=== PATIENT | female | born 1940 | race Caucasian/White ===

== ENCOUNTER 2016-08-23 21:18 | Emergency (ER) | payer MEDICARE, BC ==
[2016-08-23 22:06] LABS: #Basophils 0.1 thou/uL (0.0-0.2); #Eosinphils 0.3 thou/uL (0.0-0.7); #Lymphocytes 2.8 thou/uL (1.20-3.40); #Monocytes 0.7 thou/uL (0.11-0.59); #Neutrophils 5.6 thou/uL (1.40-6.50); %Basophils 1.2 % (0.0-1.0); %Eosinophils 3.2 % (0.0-10.0); %Monocytes 7.4 % (0.0-10.0); Hematocrit 42.1 % (36.0-47.0); Mean Platelet Volume 6.3 fL (7.4-10.4); Red Blood Cell (RBC) Count 4.54 mill/uL (4.20-5.40); White Blood Cell (WBC) Count 9.5 thou/uL (4.8-10.8)
[2016-08-23 22:31] LABS: Anion Gap 15 mmol/L (10-20); BUN (Urea Nitrogen) 25 mg/dL (9.8-20.1); Calc. Creatinine Clearance 0 mL/min (70-130); Calcium 9.5 mg/dL (7.8-10.44); Carbon Dioxide 18 mmol/L (23-31); Chloride 110 mmol/L (98-107); Estimated GFR-MDRD 43
--- NOTE | 2016-08-23 23:11 | ERRECORD ---
[facility] EMERGENCY RECORD ROS (21:56 MBRI) CONSTITUTIONAL: Negative constitutional review of systems, Historian denies chills, denies fever. EYES: Negative eye review of systems. ENT: Historian denies rhinorrhea, denies sore throat. CARDIOVASCULAR: Historian denies chest pain, denies dyspnea on exertion. RESPIRATORY: Historian denies cough, denies shortness of breath. GI: Negative gastrointestinal review of systems, Historian denies abdominal pain, denies diarrhea, denies nausea, denies vomiting. GENITOURINARY FEMALE: Negative genitourinary review of systems. MUSCULOSKELETAL: Historian denies injury, Denies any musculoskeletal pain. SKIN: Negative skin review of systems, Historian denies skin changes. NEUROLOGIC: Historian denies dizziness, denies focal weakness, denies headache, denies mental status changes, denies paresthesias, denies seizures, denies sensory changes, denies speech changes, denies tremors, denies vertigo, denies focal weakness, Historian denies sensory changes. PAST MEDICAL HISTORY (21:30 BMAD) MEDICAL HISTORY: Flu vaccine not up to date, Tetanus immunization up to date, Pneumococcal vaccine not up to date, Past medical history includes history of hypertension, which has been treated. FEMALE SURGICAL HISTORY: gangrenous ovarian cyst removed, Surgical history of hysterectomy. PSYCHIATRIC HISTORY: No previous psychiatric history. SOCIAL HISTORY: Patient denies alcohol use, Patient denies drug use, Patient has no smoking history. KNOWN ALLERGIES No Known Allergies CURRENT MEDICATIONS (21:31 BMAD) meTOPROLOL succinate: TABLET, EXTENDED RELEASE 24 HR : Strength - 50 mg : ORAL Patient Dose: 1 tab(s) Oral once a day. lisinopril-hydrochlorothiazide: TABLET : Strength - 20 mg-12.5 mg : ORAL Patient Dose: 1 tab(s) Oral once a day. VITAL SIGNS VITAL SIGNS: BP: 188/116, Pulse: 65, Resp: 18, Temp: 97.6 (Oral), Pain: 1, O2 sat: 98 on Room Air, Time: 08/23/2016 21:25. (21:25 BMAD) BP: 165/91, Time: 08/23/2016 21:36. (21:36 BMAD) Pulse: 62, Resp: 16, O2 sat: 97 on Room Air, Time: 08/23/2016 21:49. (21:49 BMAD) BP: 163/105, Time: 08/23/2016 21:50. (21:50 BMAD) &a-1R&a+25V*p+0X*q5477Y*c202B*c15G*c2P*p-0X&a-25V&a+1R Name: Jessica Peterson : 1940 F76 MedRec: [id number] AcctNum: [id number] Prepared: FriAug 23, 2016 22:50 by Interface Page 1 of 3 pMD [facility] EMERGENCY RECORD BP: 153/88, Pulse: 59, Resp: 18, Pain: 0, O2 sat: 97 on Room Air, Time: 08/23/2016 22:13. (22:13 BMAD) BP: 161/92, Pulse: 60, Resp: 14, O2 sat: 96 on Room Air, Time: 08/23/2016 22:23. (22:23 BMAD) PHYSICAL EXAM (21:56 MBRI) CONSTITUTIONAL: Vital Signs Reviewed, Nursing notes reviewed. HEAD: Head exam included findings of head atraumatic, normocephalic. EYES: Eye exam included findings of eyelids normal to inspection, Pupils equally round and reactive to light, Extraocular muscles intact. ENT: Ear exam normal, external ear normal, tympanic membranes normal, Pharynx exam normal. NECK: Neck exam normal, no cervical adenopathy, no tenderness. RESPIRATORY CHEST: Respiratory exam included findings of no respiratory distress, Breath sounds clear, No wheezing, No rales, No rhonchi. CARDIOVASCULAR: Cardiovascular exam included findings of heart rate regular rate and rhythm, Heart sounds normal, Carotids normal. ABDOMEN FEMALE: Abdominal exam included findings of abdomen nontender, Bowel sounds normal, no peritoneal signs, no rigidity, no guarding, no rebound. BACK: Back exam included findings of normal inspection, no tenderness. UPPER EXTREMITY: Upper extremity exam included findings of inspection normal, Radial pulse normal, no cyanosis, no clubbing, no edema. LOWER EXTREMITY: Lower extremity exam included findings of inspection normal, femoral pulses normal, no cyanosis, no clubbing, no edema, no tenderness noted. NEURO: Neuro exam findings include patient oriented to person, place and time, Speech normal, no focal motor deficits. SKIN: Skin exam included findings of skin warm, dry, and normal in color. EKG INTERPRETATION (21:47 MBRI) 12 LEAD EKG INTERPRETATION: 12 lead EKG interpreted by Emergency Department Physician at time of study, 12 lead EKG shows, sinus bradycardia, Rate (beats per minute): 51, with no ectopics, Conduction normal, ST segments normal, T waves normal, [place] normal. DOCTOR NOTES (22:37 MBRI) TEXT: PT has a hx of HTN and has been asymptomatic with the current pressure. No evidence at this time to suggest an associated cardiovascular or neurologic process requiring further intervention or evaluation during this encounter. The patient is on a medication regimen for this and it is recommended that they follow-up with their PMD to further assess their BP control. &a-1R&a+25V*p+0X*g9697A*c202B*c15G*c2P*p-0X&a-25V&a+1R Name: Jessica Peterson : 1940 F76 MedRec: [id number] AcctNum: [id number] Prepared: FriAug 23, 2016 22:50 by Interface Page 2 of 3 pMD [facility] EMERGENCY RECORD PROBLEM LIST No recorded problems DIAGNOSIS (22:37 MBRI) FINAL: PRIMARY: ESSENTIAL PRIMARY HYPERTENSION. PRESCRIPTION No recorded prescriptions DISPOSITION PATIENT: Disposition Type: Discharge, Disposition: *Discharge Home, Condition: Guarded. (22:37 MBRI) Condition: Good. (22:37 MBRI) Patient left the department. (22:46 BMAD) Stoner: BMAD=TULIO Crow, Brandon MBRI=DO Ordoñez Matthew &a-1R&a+25V*p+0X*c2498D*c202B*c15G*c2P*p-0X&a-25V&a+1R Name: KristenJessica : 1940 F76 MedRec: [id number] AcctNum: [id number] Prepared: FriAug 23, 2016 22:50 by Interface Page 3 of 3 pMD MTDD
--- NOTE | 2016-08-23 23:20 | PICIS ---
[facility] EMERGENCY RECORD TRIAGE (21:28 BMAD) TRIAGE NOTES: pt stating she took her blood pressure at home with a reading of 209 systolic and 30 mins later it was 189 systolic and 30 mins after that 214 systolic. pt taking home meds for htn. pt stating she has also had blurry vision. (21:28 BMAD) PATIENT: NAME: Jessica Peterson, AGE: 76, GENDER: female, : Fri1940, TIME OF GREET: FriAug 23, 2016 21:19, PREFERRED LANGUAGE: Czech, ETHNICITY: Not or , ECODE BILLING MAP: [facility], SSN: [id number], Zip Code: [address], KG WEIGHT: 83.46, PHONE: , , , PERSON ID: [id number], PAYMENT: [employer] Medicare, PCP: None. (21:28 BMAD) COMPLAINT: Hypertension. (21:28 BMAD) ADMISSION: URGENCY: 3 Urgent, ADMISSION SOURCE: Home, TRANSPORT: Walk-in, BED: ER -03. (21:28 BMAD) IMMUNIZATIONS: Flu vaccine not up to date, Tetanus immunization up to date, Pneumococcal vaccine not up to date. (21:30 BMAD) SIRS SCORING: Heart Rate 55-109 (0), Temp range 96.8-101.1 (0), respiratory rate 12-24 (0), Mental Status altered: no (0), Infection or Suspected Infection: No. (21:30 BMAD) TRIAGE SCREENING: Patient denies suicidal ideation, Patient denies presence of domestic violence. (21:30 BMAD) PROVIDERS: TRIAGE NURSE: Brandon Crow RN. (21:28 BMAD) VITAL SIGNS: BP 188/116, Pulse 65, Resp 18, Temp 97.6, (Oral), Pain 1, O2 Sat 98, on Room Air, Time 08/23/2016 21:25. (21:25 BMAD) PREVIOUS VISIT ALLERGIES: No Known Allergies. (21:28 BMAD) No Known Allergies. (21:30 BMAD) KNOWN ALLERGIES No Known Allergies CURRENT MEDICATIONS (21:31 BMAD) meTOPROLOL succinate: TABLET, EXTENDED RELEASE 24 HR : Strength - 50 mg : ORAL Patient Dose: 1 tab(s) Oral once a day. lisinopril-hydrochlorothiazide: TABLET : Strength - 20 mg-12.5 mg : ORAL Patient Dose: 1 tab(s) Oral once a day. VITAL SIGNS VITAL SIGNS: BP: 188/116, Pulse: 65, Resp: 18, Temp: 97.6 (Oral), Pain: 1, O2 sat: 98 on Room Air, Time: 08/23/2016 21:25. (21:25 BMAD) BP: 165/91, Time: 08/23/2016 21:36. (21:36 BMAD) Pulse: 62, Resp: 16, O2 sat: 97 on Room Air, Time: 08/23/2016 21:49. (21:49 BMAD) BP: 163/105, Time: 08/23/2016 21:50. (21:50 BMAD) BP: 153/88, Pulse: 59, Resp: 18, Pain: 0, O2 sat: 97 on Room Air, Time: 08/23/2016 22:13. (22:13 BMAD) BP: 161/92, Pulse: 60, Resp: 14, O2 sat: 96 on Room Air, Time: 08/23/2016 &a-1R&a+25V*p+0X*u5005P*c202B*c15G*c2P*p-0X&a-25V&a+1R Name: Jessica Peterson : 1940 F76 MedRec: [id number] AcctNum: [id number] Prepared: FriAug 23, 2016 22:56 by Interface Page 1 of 7 pMD [facility] EMERGENCY RECORD 22:23. (22:23 BMAD) NURSING ASSESSMENT: CARDIOVASCULAR (21:36 BMAD) CONSTITUTIONAL: Complex assessment performed, Patient arrives ambulatory, Gait steady, History obtained from patient, Patient appears comfortable, Patient cooperative, Patient alert, Oriented to person, place and time, Skin warm, Skin dry, Skin normal in color, Mucous membranes pink, Mucous membranes moist, Patient is well-groomed, Patient complains of hypertension, see triage note. PAIN: dull pain, frontal lobe, constant, on a scale 0-10 patient rates pain as 1, Pain exacerbated by nothing, Nothing has been tried to alleviate the pain. CARDIOVASCULAR: Cardiovascular assessment findings include heart rate normal, Heart rhythm normal sinus, Heart sounds normal, S1, S2, Left radial pulse +3(easily palpated, considered normal), Right radial pulse +3(easily palpated, considered normal), Left dorsalis pedis pulse +3(easily palpated, considered normal), Right dorsalis pedis pulse +3(easily palpated, considered normal). RESPIRATORY/CHEST: Breath sounds clear, Respiratory assessment findings include respiratory effort easy, Respirations regular, Conversing normally, Neck and chest exam findings include trachea midline, Chest expansion equal, Chest movement symmetrical. NURSING ASSESSMENT: FALL RISK (21:32 BMAD) FALL RISK: Fall risk assessment findings include: no history of falls (0), No bed rest greater than 2 days (0), No use of level of consciousness altering agents with mentation or cognitive changes (0), Change in blood pressure (1), No sensory deficits (0), No impaired mobility (0), No neurologic diagnosis (0), No elimination problems (0), No confusion (0), Total score 1, No risk for fall. NURSING ASSESSMENT: SKIN (21:32 BMAD) SKIN: Skin assessment findings include skin warm, Skin dry, Skin normal in color, Inspection findings include: No pressure ulcer to the shoulder, Inspection findings include no pressure ulcer to the elbow, Inspection findings include no pressure ulcers to the hip, Inspection findings include no pressure ulcer to the sacrum, Inspection findings include no pressure ulcer to the heel, Inspection findings include no pressure ulcer, Inspection findings include no pressure ulcer. NURSING PROCEDURE: KINDERGARTEN ASSISTANT (FriAug 23, 2016 21:28 KSPL) PATIENT IDENTIFIER: Patient actively involved in identification process, Patient's identity verified by patient stating name, Patient's identity verified by patient stating date. KINDERGARTEN ASSISTANT: Cardiac monitoring indicated for FACILITATE DX, Patient placed on electronic device monitor, Heart rate: 65, Patient placed on non-invasive blood pressure monitor, with disposable blood &a-1R&a+25V*p+0X*v8615T*c202B*c15G*c2P*p-0X&a-25V&a+1R Name: Jessica Peterson : 1940 F76 MedRec: [id number] AcctNum: [id number] Prepared: FriAug 23, 2016 22:56 by Interface Page 2 of 7 pMD [facility] EMERGENCY RECORD pressure cuff applied, Patient placed on continuous pulse oximetry, Adult/pediatric oxisensor applied. SAFETY: Side rails up, Cart/Stretcher in lowest position, Call light within reach, Hospital ID band on, Friend(s) at bedside, Patient in view of the nursing station. NURSING PROCEDURE: DISCHARGE NOTE (22:45 BMAD) DISCHARGE: Patient discharged to home, ambulating without assistance, family driving, accompanied by other family member, Summary of Care printed/ provided, Patient requested and was provided an electronic copy of Discharge Instructions, Transition record given to patient, Discharge instructions given to patient, Simple or moderate discharge teaching performed, by BRANDON RN, Above person(s) verbalized understanding of discharge instructions and follow-up care, Patient discharged by, Dr. ORDOÑEZ. BELONGINGS: Belongings and valuables with patient at time of discharge include:, Belongings remain with patient, Valuables remain with patient. NURSING PROCEDURE: EKG CHART (21:41 BMAD) PATIENT IDENTIFIER: Patient actively involved in identification process, Patient's identity verified by patient stating name, Patient's identity verified by patient stating date, Patient's identity verified by hospital ID brafernanda. EKG: EKG indicated for hypertension, 12 lead EKG performed on the left chest, done by Brandon ANTUNEZ, first EKG. FOLLOW-UP: After procedure, EKG for interpretation given to Dr. Ordoñez. ORDER DETAILS Order Name: Basic Metabolic Panel, Status: Active, Time: 21:37 08/23/2016, User: SOREN, - Ordered for: DO Ordoñez Matthew, - Entered by: DO Ordoñez Matthew - FriAug 23, 2016 21:37, - Quantity: 1, Order Name: KINDERGARTEN ASSISTANT ED, Status: Done, Time: 21:39 08/23/2016, User: KSPL, - Ordered for: DO Ordoñez Matthew, - Entered by: DO Ordoñez Matthew - FriAug 23, 2016 21:37, - Quantity: 1, Order Name: CBC with Differential, Status: Active, Time: 21:37 08/23/2016, User: SOREN, - Ordered for: DO Ordoñez Matthew, - Entered by: DO Ordoñez Matthew - FriAug 23, 2016 21:37, - Quantity: 1, Order Name: EKG 12 Lead in Emergency Room, Status: Active, Time: 21:37 08/23/2016, User: SOREN, - Ordered for: DO Ordoñez Matthew, - Entered by: DO Ordoñez Matthew - FriAug 23, 2016 21:37, &a-1R&a+25V*p+0X*m9249W*c202B*c15G*c2P*p-0X&a-25V&a+1R Name: Jessica Peterson : 1940 F76 MedRec: [id number] AcctNum: [id number] Prepared: FriAug 23, 2016 22:56 by Interface Page 3 of 7 pMD [facility] EMERGENCY RECORD - Quantity: 1, Order Name: SALINE LOCK, Status: Canceled, Time: 21:46 08/23/2016, User: BMAD, - Ordered for: DO Ordoñez Matthew, - Entered by: DO Ordoñez Matthew - FriAug 23, 2016 21:37, - Quantity: 1. ROS (21:56 MBRI) CONSTITUTIONAL: Negative constitutional review of systems, Historian denies chills, denies fever. EYES: Negative eye review of systems. ENT: Historian denies rhinorrhea, denies sore throat. CARDIOVASCULAR: Historian denies chest pain, denies dyspnea on exertion. RESPIRATORY: Historian denies cough, denies shortness of breath. GI: Negative gastrointestinal review of systems, Historian denies abdominal pain, denies diarrhea, denies nausea, denies vomiting. GENITOURINARY FEMALE: Negative genitourinary review of systems. MUSCULOSKELETAL: Historian denies injury, Denies any musculoskeletal pain. SKIN: Negative skin review of systems, Historian denies skin changes. NEUROLOGIC: Historian denies dizziness, denies focal weakness, denies headache, denies mental status changes, denies paresthesias, denies seizures, denies sensory changes, denies speech changes, denies tremors, denies vertigo, denies focal weakness, Historian denies sensory changes. PAST MEDICAL HISTORY (21:30 BMAD) MEDICAL HISTORY: Flu vaccine not up to date, Tetanus immunization up to date, Pneumococcal vaccine not up to date, Past medical history includes history of hypertension, which has been treated. FEMALE SURGICAL HISTORY: gangrenous ovarian cyst removed, Surgical history of hysterectomy. PSYCHIATRIC HISTORY: No previous psychiatric history. SOCIAL HISTORY: Patient denies alcohol use, Patient denies drug use, Patient has no smoking history. PHYSICAL EXAM (21:56 MBRI) CONSTITUTIONAL: Vital Signs Reviewed, Nursing notes reviewed. HEAD: Head exam included findings of head atraumatic, normocephalic. EYES: Eye exam included findings of eyelids normal to inspection, Pupils equally round and reactive to light, Extraocular muscles intact. ENT: Ear exam normal, external ear normal, tympanic membranes normal, Pharynx exam normal. NECK: Neck exam normal, no cervical adenopathy, no tenderness. RESPIRATORY CHEST: Respiratory exam included findings of no &a-1R&a+25V*p+0X*e7199L*c202B*c15G*c2P*p-0X&a-25V&a+1R Name: Jessica Peterson : 1940 F76 MedRec: [id number] AcctNum: [id number] Prepared: FriAug 23, 2016 22:56 by Interface Page 4 of 7 pMD [facility] EMERGENCY RECORD respiratory distress, Breath sounds clear, No wheezing, No rales, No rhonchi. CARDIOVASCULAR: Cardiovascular exam included findings of heart rate regular rate and rhythm, Heart sounds normal, Carotids normal. ABDOMEN FEMALE: Abdominal exam included findings of abdomen nontender, Bowel sounds normal, no peritoneal signs, no rigidity, no guarding, no rebound. BACK: Back exam included findings of normal inspection, no tenderness. UPPER EXTREMITY: Upper extremity exam included findings of inspection normal, Radial pulse normal, no cyanosis, no clubbing, no edema. LOWER EXTREMITY: Lower extremity exam included findings of inspection normal, femoral pulses normal, no cyanosis, no clubbing, no edema, no tenderness noted. NEURO: Neuro exam findings include patient oriented to person, place and time, Speech normal, no focal motor deficits. SKIN: Skin exam included findings of skin warm, dry, and normal in color. LAB INTERPRETATION (22:39 MBRI) INTERPRETATION: I reviewed the lab results. EVENTS TRANSFER: Triage to Emergency Emergency Room -03. (FriAug 23, 2016 21:28 BMAD) Removed from Emergency Emergency Room -03. (22:46 BMAD) EKG INTERPRETATION (21:47 MBRI) 12 LEAD EKG INTERPRETATION: 12 lead EKG interpreted by Emergency Department Physician at time of study, 12 lead EKG shows, sinus bradycardia, Rate (beats per minute): 51, with no ectopics, Conduction normal, ST segments normal, T waves normal, [place] normal. O2SAT INTERPRETATION (21:47 MBRI) O2SAT: Oxygen saturation interpretation: Normal. DOCTOR NOTES (22:37 MBRI) TEXT: PT has a hx of HTN and has been asymptomatic with the current pressure. No evidence at this time to suggest an associated cardiovascular or neurologic process requiring further intervention or evaluation during this encounter. The patient is on a medication regimen for this and it is recommended that they follow-up with their PMD to further assess their BP control. PROBLEM LIST No recorded problems DIAGNOSIS (22:37 MBRI) &a-1R&a+25V*p+0X*q8113T*c202B*c15G*c2P*p-0X&a-25V&a+1R Name: Jessica Peterson : 1940 F76 MedRec: [id number] AcctNum: [id number] Prepared: FriAug 23, 2016 22:56 by Interface Page 5 of 7 pMD [facility] EMERGENCY RECORD FINAL: PRIMARY: ESSENTIAL PRIMARY HYPERTENSION. DISPOSITION PATIENT: Disposition Type: Discharge, Disposition: *Discharge Home, Condition: Guarded. (22:37 MBRI) Condition: Good. (22:37 MBRI) Patient left the department. (22:46 BMAD) INSTRUCTION (22:39 MBRI) DISCHARGE: HYPERTENSION, ESTABLISHED, OUT OF CONTROL. FOLLOWUP: Pat Ledesma, /Truong Adams, [address] [place] [id number], , Follow up with Primary Care Physician in 7-10 days. SPECIAL: Please return for any further issues or concerns, we would be happy to see you. We hope you feel better soon. Follow-up with your PCP Tylenol or Advil for Pain. PRESCRIPTION No recorded prescriptions IMAGING (22:44 BMAD) *SUPPLY CHARGE SHEET: Image captured from scanner. *DISCHARGE INSTRUCTIONS RECEIPT: Image captured from scanner. *EKG: Image captured from scanner. RESULTS (22:37 MBRI) LABORATORY: Basic Metabolic Panel Collection DT: FriAug 23, 2016 21:53, Sodium 139 mmol/L, Range (136-145), Potassium 3.8 mmol/L, Range (3.5-5.1), *Chloride 110 - H mmol/L, Range (98-107), *Carbon Dioxide 18 - L mmol/L, Range (23-31), Anion Gap 15 mmol/L, Range (10-20), *BUN (Urea Nitrogen) 25 - H mg/dL, Range (9.8-20.1), *Creatinine 1.22 - H mg/dL, Range (0.6-1.1), Estimated GFR-MDRD 43 , Reference Range for Estimated GFR: Greater than 90, mL/min/1.73 m2 NOTE: The MDRD equation has not been validated for use, with the elderly (over 70 years of age), women, patients with, serious comorbid condition or persons with extremes of body size, muscle, mass, or nutritional status. , Glucose 104 mg/dL, Range (83-110), Calcium 9.5 mg/dL, Range (7.8-10.44). CBC with Differential Collection DT: FriAug 23, 2016 21:53, White Blood Cell (WBC) Count 9.5 thou/uL, Range (4.8-10.8), Red Blood Cell (RBC) Count 4.54 mill/uL, Range (4.20-5.40), &a-1R&a+25V*p+0X*t0173H*c202B*c15G*c2P*p-0X&a-25V&a+1R Name: Jessica Peterson : 1940 F76 MedRec: [id number] AcctNum: [id number] Prepared: FriAug 23, 2016 22:56 by Interface Page 6 of 7 pMD [facility] EMERGENCY RECORD Hemoglobin 13.9 g/dL, Range (12.0-16.0), Hematocrit 42.1 %, Range (36.0-47.0), Mean Corpuscular Volume 92.7 fl, Range (81.0-99.0), Mean Corpuscular Hemoglobin 30.7 pg, Range (27.0-31.0), Mean Corpuscular HGB CONC 33.1 g/dL, Range (32.0-36.0), RBC Distribution Width 12.5 %, Range (11.5-14.5), Platelet Count 269 thou/uL, Range (130-400), *Mean Platelet Volume 6.3 - L fL, Range (7.4-10.4), %Neutrophils 59.0 %, Range (42.0-75.0), %Lymphocytes 29.2 %, Range (21.0-51.0), %Monocytes 7.4 %, Range (0.0-10.0), %Eosinophils 3.2 %, Range (0.0-10.0), *%Basophils 1.2 - H %, Range (0.0-1.0), #Neutrophils 5.6 thou/uL, Range (1.40-6.50), #Lymphocytes 2.8 thou/uL, Range (1.20-3.40), *#Monocytes 0.7 - H thou/uL, Range (0.11-0.59), #Eosinphils 0.3 thou/uL, Range (0.0-0.7), #Basophils 0.1 thou/uL, Range (0.0-0.2). Stoner: BMAD=TULIO Crow, Brandon KSPL=TULIO Vallecillo, Gloria MBRI=DO Ordoñez Matthew &a-1R&a+25V*p+0X*e4330V*c202B*c15G*c2P*p-0X&a-25V&a+1R Name: Jessica Peterson : 1940 F76 MedRec: [id number] AcctNum: [id number] Prepared: FriAug 23, 2016 22:56 by Interface Page 7 of 7 pMD MTDD
== END 2016-08-23 22:40 | disposition home or self-care (01) ==
LOC: BURERS 21:18
DX: I10 Essential (primary) hypertension (principal); Z79.899 Other long term (current) drug therapy
CPT/HCPCS: 36415; 80048; 85025; 93005

== ENCOUNTER 2016-09-02 16:36 | Outpatient (CLI) | payer MEDICARE, BC ==
[2016-09-02 17:01] LABS: Anion Gap 14 mmol/L (10-20); BUN (Urea Nitrogen) 25 mg/dL (9.8-20.1); Calc. Creatinine Clearance 0 mL/min (70-130); Calcium 9.7 mg/dL (7.8-10.44); Carbon Dioxide 24 mmol/L (23-31); Chloride 106 mmol/L (98-107); Estimated GFR-MDRD 34
== END 2016-09-02 16:37 | disposition home or self-care (01) ==
LOC: HPCALD 16:36
PROVIDERS: ATTEND Family Medicine
DX: N28.9 Disorder of kidney and ureter, unspecified (principal)
CPT/HCPCS: 36415; 80048

== ENCOUNTER 2016-10-23 13:52 | Outpatient (CLI) | payer MEDICARE, BC ==
[2016-10-23 14:35] LABS: Anion Gap 13 mmol/L (10-20); BUN (Urea Nitrogen) 19 mg/dL (9.8-20.1); Calc. Creatinine Clearance 0 mL/min (70-130); Calcium 9.5 mg/dL (7.8-10.44); Carbon Dioxide 23 mmol/L (23-31); Chloride 109 mmol/L (98-107); Estimated GFR-MDRD 43; Glucose 85 mg/dL (83-110); Sodium 141 mmol/L (136-145)
== END 2016-10-23 13:53 | disposition home or self-care (01) ==
LOC: HPCALD 13:52
PROVIDERS: ATTEND Family Medicine
DX: N28.9 Disorder of kidney and ureter, unspecified (principal); R31.29 Other microscopic hematuria
CPT/HCPCS: 36415; 80048; 87086